=== PATIENT | female | born 1965 | race Caucasian/White ===

== ENCOUNTER 2016-06-22 14:02 | Emergency (ER) | payer OTHER ==
[~2016-06-22] VITALS: Ht 165.1 cm; Wt 101.7 kg
[~2016-06-22 14:02] MED LIST: FLEXERIL10 MG PO; HYDROCODON-ACE1 EAC7 PO; NOHOMEMEDS
[2016-06-22 15:18] VITALS: BP 151/74
== END 2016-06-22 15:19 | disposition home or self-care (01) ==
LOC: EME 14:02
DX: M79.89 Other specified soft tissue disorders (principal); M79.671 Pain in right foot; F17.200 Nicotine dependence, unspecified, uncomplicated
CPT/HCPCS: 99281; 99282

== ENCOUNTER 2017-01-29 16:48 | Emergency (ER) | payer OTHER | END 2017-01-29 17:21 | disposition left against medical advice (07) | LOC: EME 16:48 | DX: R21 Rash and other nonspecific skin eruption (principal); Z53.21 Procedure and treatment not carried out due to patient leaving prior to being seen by health care provider ==